=== PATIENT | male | born 1965 | race Caucasian/White ===

== ENCOUNTER → 2017-08-04 | Outpatient (CLI) | payer OTHER ==
--- NOTE | 2017-08-04 09:33 | US ---
EXAMINATION TYPE: US thyroid st tissue head/neck DATE OF EXAM: 08/04/2017 COMPARISON: NONE CLINICAL HISTORY: R22.1 Localized swelling, mass and lump neck. GLAND SIZE: Right Lobe: 4.4 x 2.1 x 1.4 cm Overall Parenchyma: homogenous Left Lobe: 3.2 x1.3 x 1.5 cm Overall Parenchyma: homogeneous Isthmus Thickness: 0.2 cm NODULES RIGHT: # of nodules measured on right: 1 1. 0.7 X 0.6 x 0.8 cm isoechoic mixed nodule at the mid pole with well-defined margins. This nodul e is wider than tall and shows intranodular vascularity. LEFT: # of nodules measured on left: 0 ISTHMUS: # of nodules measured in the isthmus: 0 Bilateral neck scanned, no evidence of lymphadenopathy. Area of left lump scanned, small normal lymph node seen. Thyroid gland is somewhat small in size with 8 mm solid and cystic nodule anteriorly mid pole level r ight thyroid marked by technologist. IMPRESSION: Small size thyroid gland without worrisome greater than 1 cm solid or cystic nodules seen bilaterally .
== END | disposition home or self-care (01) ==
LOC: RADUSWWP 08:39
PROVIDERS: ATTEND Family Medicine
DX: E04.2 Nontoxic multinodular goiter (principal)
CPT/HCPCS: 76536

== ENCOUNTER → 2024-10-30 | Outpatient (CLI) | payer OTHER ==
[2024-10-30 10:16] LABS: HCT 44.9 % (39.6-50.0); HGB 15.3 g/dL (13.0-17.0); MCH 31.2 pg (27.0-32.0); MCHC 34.1 g/dL (32.0-37.0); MCV 91.6 FL (80.0-97.0); Mean Platelet Volume 10.8 FL (9.5-12.2); NRBC Per 100 WBC 0 X 10*3/uL (0.00-0.01); Platelet Count 245 X 10*3/uL (140-440); WBC 9.18 X 10*3/uL (4.50-10.00)
[2024-10-30 10:43] LABS: ALT 16 U/L (10-49); AST 20 U/L (14-35); Albumin 4.2 g/dL (3.8-4.9); Albumin/Globulin Ratio 1.91 Ratio (1.60-3.17); Alkaline Phosphatase 85 U/L (41-126); BUN/Creat Ratio 21.83 Ratio (12.00-20.00); Blood Urea Nitrogen 13.1 mg/dL (9.0-27.0); Carbon Dioxide 23.4 mmol/L (21.6-31.8); Chloride 105 mmol/L (96-109); Chol/HDL Ratio 3.29 Ratio; Globulin 2.2 g/dL (1.6-3.3); Glucose 117 mg/dL (70-110); LDL Cholesterol,Calculated 91.9 mg/dL (0.0-131.0); Potassium 4.1 mmol/L (3.5-5.5); Prostate Specific Antigen 0.88 ng/mL (0.000-4.500); Sodium 140 mmol/L (135-145); Total Bilirubin 0.2 mg/dL (0.3-1.2); Total Protein 6.4 g/dL (6.2-8.2)
== END | disposition home or self-care (01) ==
LOC: LABWHC1 07:42
PROVIDERS: ATTEND Family Medicine
DX: Z00.00 Encounter for general adult medical examination without abnormal findings (principal)
CPT/HCPCS: 36415; 80053; 80061; 84153; 85027